=== PATIENT | female | born 1990 | race African-American/Black ===

== ENCOUNTER 2017-01-27 00:50 | Emergency (ER) | payer MEDICAID ==
[~2017-01-27] VITALS: Ht 167.6 cm; Wt 82.0 kg
[2017-01-27 01:01] VITALS: BP 121/71
[2017-01-27] MEDS ORDERED: KETOROLAC 60MG/2ML VIAL IM ONE (02:15)
== END 2017-01-27 05:06 | disposition home or self-care (01) ==
LOC: ER 00:50
DX: S39.012A Strain of muscle, fascia and tendon of lower back, initial encounter (principal); S13.9XXA Sprain of joints and ligaments of unspecified parts of neck, initial encounter; M79.671 Pain in right foot; F12.10 Cannabis abuse, uncomplicated; V49.9XXA Car occupant (driver) (passenger) injured in unspecified traffic accident, initial encounter; Y93.89 Activity, other specified; Y92.488 Other paved roadways as the place of occurrence of the external cause; Y99.8 Other external cause status
CPT/HCPCS: 72100; 72125; 73630; 96372; 99284; J1885